=== PATIENT | male | born 2000 | race Caucasian/White ===

== ENCOUNTER 2021-11-26 11:34 | Emergency (ER) | payer OTHER, SELFPAY ==
[2021-11-26 11:42] VITALS: BP 149/92; PULSE 88; RESP 16; TEMP 36.4; O2SAT 99
[2021-11-26 11:44] VITALS: BP 135/78; PULSE 95; RESP 14; TEMP 36.6; O2SAT 98
--- NOTE | 2021-11-26 12:05 | ED.MALEGU ---
HPI - Male Genitourinary General Chief complaint: Urogenital-Male Stated complaint: testicle discomfort Time Seen by Provider: 11/26/21 11:37 History of Present Illness HPI Narrative: Patient is a 21-year-old male who presents ER with concerns regarding his scrotum. Reports he woke up this morning and he had a bulging vein in his right scrotal area. He then noticed that it was moving upwards. Then he noticed that he had some redness over the scrotum in that area. No testicular pain. No trauma. No urinary frequency urgency or dysuria. No discharge from the tip of his penis. Denies risk for sexual transmitted infection. Related Data Home Medications Medication Instructions Recorded Confirmed No Home Medications 11/26/21 11/26/21 Allergies Allergy/AdvReac Type Severity Reaction Status Date / Time No Known Allergies Allergy Mild Verified 11/26/21 11:48 Review of Systems Constitutional: Constitutional: Denies chills and Denies fever(s) Gastrointestinal: Gastrointestinal: Denies abdominal pain, Denies nausea and Denies vomiting Genitourinary: Genitourinary: Denies genital lesions, Denies dysuria, Denies penile discharge and Denies urinary frequency PMFSH Past Medical History Medical History (Updated 11/26/21 @ 20:45 by Edward Gibson MD) Healthy adult male Surgical History Surgical History (Updated 11/26/21 @ 20:45 by Edward Gibson MD) No history of previous surgery Social History Social History (Updated 11/26/21 @ 20:45 by Edward Gisbon MD) Smoking status: Never smoker Exam Narrative: GENERAL: Well-appearing, well-nourished, and in no acute distress. HEAD: Normocephalic, atraumatic. EXTREMITIES: Normal range of motion. Normal strength. : Normal-appearing external genitalia with a circumcised penis that is free of lesions. Scrotum without edema. No testicular tenderness or epididymal tenderness bilaterally. The scrotum is free of abscess or ingrown hair. No prominent veins noted within the scrotum. There is one area that is slightly reddened but nontender equally warm. Reports is a site of where he saw an abnormal vein earlier. SKIN: Warm, dry, no rash. NEURO: No focal deficits. Alert and oriented x3. PSYCH: Normal mood and affect. Course Course Emergency Course: Unsure fully what patient experienced. He may have noticed a full vein that then decreased in size. He also may have irritation of sebaceous cyst. Recommend topical antibiotic and anti-inflammatories. No clinical signs or symptoms of testicular torsion. Vital Signs Vital signs: Vital Signs Temperature 97.6 F 11/26/21 11:42 Pulse Rate 88 11/26/21 11:42 Respiratory Rate 16 11/26/21 11:42 Blood Pressure 149/92 H 11/26/21 11:42 Pulse Oximetry 99 11/26/21 11:42 Temperature 98 F 11/26/21 11:44 Pulse Rate 70 11/26/21 12:16 Respiratory Rate 14 11/26/21 12:16 Blood Pressure 128/68 11/26/21 12:16 Pulse Oximetry 100 11/26/21 12:16 Discharge Plan Discharge Clinical Impression: Irritation of scrotum Patient Disposition: Home, Self-Care Condition: Stable Instructions: Antibiotic Form, Scrotal Pain (ED) Additional Instructions: There is slight redness outside of your scrotum very small area. Apply topical antibiotic next 5 days twice a day in case there is a developing infection. Take ibuprofen for discomfort. Prescriptions: No Action No Home Medications RF: 0 Follow-up/Referrals: Catarina Piña MD [Primary Care Provider] - 1 Week
[2021-11-26 12:16] VITALS: BP 128/68; PULSE 70; RESP 14; O2SAT 100
== END 2021-11-26 12:17 | disposition home or self-care (01) ==
PROVIDERS: Emergency Provider Emergency Medicine; PCP Pediatrics
DX: N50.82 Scrotal pain (principal)
CPT/HCPCS: 99281

== ENCOUNTER 2024-05-18 15:20 | Outpatient (CLI) | payer OTHER, SELFPAY ==
--- NOTE | ~2024-05-18 | XR_ITS ---
EXAMINATION: XR chest 2V 05/18/2024 15:44 INDICATION: Enlarged lymph nodes. PROCEDURE: 2 view chest COMPARISON: No prior studies for comparison. FINDINGS: The lungs are clear. The cardiomediastinal silhouette is within normal limits. There are no pleural effusions. There is no pneumothorax suspected. IMPRESSION: 1: NO ACUTE CARDIOPULMONARY DISEASE. Reviewed, dictated and finalized at location B.
[2024-05-18 16:18] LABS: Basophils Percent Auto 0.5 % (0.2-1.2); Eosinophils Absolute Auto 0.2 K/mm3 (0-0.3); Eosinophils Percent Auto 1.8 % (0-4.4); Hematocrit 43.8 % (42.0-52.0); Hemoglobin 14.3 g/dL (14.0-18.0); Immature Granulocyte Absolute 0.02 K/mm3 (0.00-0.031); Immature Granulocyte Percent A 0.2 % (0-0.5); Lymphocytes Percent Auto 26.5 % (18.3-44.2); Mean Corpuscular HGB Conc 32.6 g/dl (32-36); Mean Corpuscular Volume 85.7 fl (80-100); Mean Platelet Volume 9.9 fl (7.4-10.4); Monocytes Absolute Auto 0.7 K/mm3 (0.1-0.6); Monocytes Percent Auto 8.2 % (2.6-8.5); Neutrophils Absolute Auto 5.2 K/mm3 (1.3-6.7); Neutrophils Percent Auto 62.8 % (45.5-73.1); Platelet Count Result 231 k/mm3 (150-375); Red Blood Count 5.11 M/mm3 (4.6-6.20); White Blood Count 8.3 K/mm3 (4.5-10.0)
[2024-05-18 18:03] LABS: HIV 1/2 Ab P24 Ag Result Negative (Negative)
== END 2024-05-18 15:21 | disposition home or self-care (01) ==
LOC: ANHLAB 15:22
PROVIDERS: PCP Nurse Practitioner Family; Visit Provider Nurse Practitioner Family
DX: R59.1 Generalized enlarged lymph nodes (principal); Z72.0 Tobacco use
CPT/HCPCS: 36415; 71046; 85025; 86703; G0432